=== PATIENT | female | born 1995 | race African-American/Black ===

== ENCOUNTER 2019-06-11 20:08 | Emergency (ER) | payer OTHER, SELFPAY ==
[2019-06-11] MEDS ORDERED: Acetaminophen 500 MG TAB ONE (20:23)
--- NOTE | 2019-06-11 20:49 | RAD ---
2 view chest: [06/11/2019] Comparison:None available HISTORY: Cough FINDINGS: Heart and mediastinal contours are grossly unremarkable. No pneumothorax or pleural fluid. No focal consolidation or alveolar edema. IMPRESSION: No acute findings.
== END 2019-06-11 21:13 | disposition home or self-care (01) ==
LOC: NAV ERS 20:08
DX: J06.9 Acute upper respiratory infection, unspecified (principal); B34.9 Viral infection, unspecified
CPT/HCPCS: 71046; 99283

== ENCOUNTER 2020-11-13 18:51 | Emergency (ER) | payer MEDICAID, SELFPAY | END 2020-11-13 19:34 | disposition left against medical advice (07) | LOC: NAV ERS 18:51 | DX: Z53.21 Procedure and treatment not carried out due to patient leaving prior to being seen by health care provider (principal) ==

== ENCOUNTER 2020-12-11 18:45 | Emergency (ER) | payer MEDICAID, SELFPAY ==
[2020-12-11] MEDS ORDERED: Ibuprofen 200 MG TAB ONE (18:52)
[2020-12-11 19:11] LABS: Bilirubin Negative (Negative); Blood, Urine Negative (Negative); Clarity Clear (Clear); Glucose, Urine (Dipstick) Negative (Negative); Ketone, Urine Negative (Negative); Leukocyte Negative (Negative); Nitrite Negative (Negative); Protein, Urine (Dipstick) Negative (Neg-Trace); Specific Gravity, Urine 1.025 (1.005-1.030); Urobilinogen 0.2 mg/dL (Less than 2); pH, Urine 5.5 (5.0-9.0)
[2020-12-11 19:12] LABS: Pregnancy Test - Urine (BHCG) Negative (Negative); Pregu Control Background? CLEAR/WHITE (CLR/WHITE); Pregu Control Bar Appear? YES (CONTROL BAR); Specific Gravity 1.025 (1.002-1.036)
[2020-12-11] MEDS ORDERED: Dicyclomine 20 MG TAB ONE (19:36)
== END 2020-12-11 19:26 | disposition home or self-care (01) ==
LOC: NAV ERS 18:45
DX: R19.7 Diarrhea, unspecified (principal); R10.10 Upper abdominal pain, unspecified
CPT/HCPCS: 81003; 81025; 99284